=== PATIENT | female | born 1960 ===

== ENCOUNTER → 2021-01-02 10:50 | Outpatient (CLI) | payer SELFPAY ==
[2021-01-02 20:31] LABS: TSH w/ Reflex to FT4 0.55 uIU/mL (0.47-4.68)
== END ==
PROVIDERS: PCP Physician Assistant; Visit Provider Physician Assistant
DX: E05.90 Thyrotoxicosis, unspecified without thyrotoxic crisis or storm (principal)
CPT/HCPCS: 84443

== ENCOUNTER → 2022-07-25 10:49 | Outpatient (CLI) | payer SELFPAY | PROVIDERS: PCP Physician Assistant; Visit Provider Physician Assistant | DX: R30.0 Dysuria (principal) | CPT/HCPCS: 87077; 87086; 87186 ==

== ENCOUNTER → 2023-06-04 08:06 | Outpatient (CLI) | payer SELFPAY ==
[2023-06-04 19:05] LABS: Alanine Aminotransferase 24 IU/L (<35); Albumin 4.4 g/dL (3.5-5.0); Albumin Globulin Ratio 1.2 (1.0-2.8); Alkaline Phosphatase 85 U/L (38-126); Aspartate Aminotransferase 32 IU/L (14-36); BUN Creatinine Ratio 16.5 (6-22); Bilirubin Total 0.6 mg/dL (0.2-1.3); Blood Urea Nitrogen 13 mg/dL (7-17); Calcium 9.9 mg/dL (8.4-10.2); Carbon Dioxide 26 mmol/L (22-32); Chloride 106 mmol/L (98-107); Estimated Glomerular Filt Rate > 60 mL/min (>60); Globulin 3.7 g/dL (1.7-4.1); Glucose 103 mg/dL (80-110); HEMOLYSIS < 15 (0-50); Potassium 3.7 mmol/L (3.4-5.1); Sodium 140 mmol/L (137-145); Total Protein 8.1 g/dL (6.3-8.2)
[2023-06-04 19:45] LABS: TSH w/ Reflex to FT4 1.73 uIU/mL (0.47-4.68)
== END ==
PROVIDERS: PCP Physician Assistant; Visit Provider Physician Assistant
DX: E03.9 Hypothyroidism, unspecified (principal); Z79.899 Other long term (current) drug therapy
CPT/HCPCS: 80053; 84443

== ENCOUNTER → 2024-10-06 10:19 | Outpatient (CLI) | payer OTHER, SELFPAY ==
[2024-10-06 21:04] LABS: Add Manual Diff / Slide Review NO; Hematocrit 39.8 % (36-46); Hemoglobin 13.3 g/dL (12.0-16.0); Lymphocytes Absolute Auto 2400 /uL (1100-4500); Mean Corpuscular HGB Conc 33.5 % (30-36); Mean Corpuscular Hemoglobin 30.4 PG (26-34); Mean Corpuscular Volume 90.8 fL (80-100); Platelet Count 235 X10^3/uL (150-400)
[2024-10-06 21:10] LABS: Alanine Aminotransferase 30 IU/L (<35); Albumin 4.1 g/dL (3.5-5.0); Albumin Globulin Ratio 1.2 (1.0-2.8); Alkaline Phosphatase 84 U/L (38-126); Blood Urea Nitrogen 18 mg/dL (7-17); Calcium 9.3 mg/dL (8.4-10.2); Carbon Dioxide 23 mmol/L (22-32); Chloride 106 mmol/L (98-107); Cholesterol 299 mg/dL (140-199); Estimated Glomerular Filt Rate > 60 mL/min (>60); Globulin 3.3 g/dL (1.7-4.1); Glucose 91 mg/dL (70-99); HDL Cholesterol 91 mg/dL (40-60); HEMOLYSIS < 15 (0-50); Potassium 4.1 mmol/L (3.4-5.1); Sodium 137 mmol/L (137-145); Total Protein 7.4 g/dL (6.3-8.2); Triglycerides 97 mg/dL (35-150)
[2024-10-06 21:29] LABS: Free T3, Triiodothyronine Free 6.08 pg/mL (2.77-5.27)
[2024-10-06 21:43] LABS: TSH w/ Reflex to FT4 0.79 uIU/mL (0.47-4.68)
[2024-10-06 22:00] LABS: Hep C Virus Ab w/Reflex Quant NEGATIVE s/c (NEGATIVE)
== END ==
PROVIDERS: PCP Physician Assistant; Visit Provider Physician Assistant
DX: E03.9 Hypothyroidism, unspecified (principal); Z79.899 Other long term (current) drug therapy; Z13.6 Encounter for screening for cardiovascular disorders; Z86.2 Personal history of diseases of the blood and blood-forming organs and certain disorders involving the immune mechanism; Z11.59 Encounter for screening for other viral diseases
CPT/HCPCS: 80053; 80061; 84443; 84481; 85025; 86803

== ENCOUNTER → 2025-02-18 09:15 | Outpatient (CLI) | payer OTHER, SELFPAY ==
[2025-02-18 19:51] LABS: Cholesterol 310 mg/dL (140-199); HDL Cholesterol 103 mg/dL (40-60); Triglycerides 108 mg/dL (35-150)
[2025-02-18 19:57] LABS: Free T3, Triiodothyronine Free 4.71 pg/mL (2.77-5.27)
[2025-02-18 20:12] LABS: TSH w/ Reflex to FT4 1.40 uIU/mL (0.47-4.68)
== END ==
PROVIDERS: PCP Physician Assistant; Visit Provider Physician Assistant
DX: E03.9 Hypothyroidism, unspecified (principal); E78.00 Pure hypercholesterolemia, unspecified
CPT/HCPCS: 80061; 84443; 84481